=== PATIENT | female | born 1980 | race Caucasian/White ===

== ENCOUNTER 2017-09-05 18:49 | Emergency (ER) | payer OTHER ==
[2017-09-05 18:57] VITALS: BP 104/78; PULSE 79; TEMP 98.1; BMI 34.2
--- NOTE | 2017-09-05 21:28 | PDOC ---
History of Present Illness - General Chief Complaint: Pain, Acute Stated Complaint: KNEE PAIN Time Seen by Provider: 09/05/17 20:02 History Source: Patient Exam Limitations: No Limitations - History of Present Illness Initial Comments: 09/05/17 22:20 Patient is a 29-year-old female who presents to the emergency department today with right knee pain. Patient states that she has had the pain started a couple weeks ago but was not this intense. Patient states that her pain got worse over the past 2 days. She states that she cannot bend the knee and it hurts when she goes up and down the stairs. She has not taken any medication for the pain. She is use BenGay with little relief. Denies trauma, falling. Denies fevers, chills , numbness and tingling, weakness, rash. Past History - Travel Traveled outside of the country in the last 30 days: No Close contact w/someone who was outside of country & ill: No - Past Medical History Allergies/Adverse Reactions: Allergies Allergy/AdvReac Type Severity Reaction Status Date / Time No Known Allergies Allergy Verified 09/05/17 18:52 Home Medications: Ambulatory Orders NK [No Known Home Medication] 09/05/17 Anemia: Yes Asthma: No Cancer: No Cardiac Disorders: No CVA: No COPD: No CHF: No Dementia: No Diabetes: No GI Disorders: No Disorders: No HTN: No Hypercholesterolemia: No Liver Disease: No Seizures: No Thyroid Disease: No Other medical history: Pt denies - Surgical History Abdominal Surgery: No Appendectomy: No Cardiac Surgery: No Cholecystectomy: No Lung Surgery: No Neurologic Surgery: No Orthopedic Surgery: No - Suicide/Smoking/Psychosocial Hx Smoking Status: No Smoking History: Never smoked Have you smoked in the past 12 months: No Number of Cigarettes Smoked Daily: 0 Information on smoking cessation initiated: No Hx Alcohol Use: No Drug/Substance Use Hx: No Substance Use Type: None Hx Substance Use Treatment: No Review of Systems - Review of Systems Able to Perform ROS?: Yes Comments:: 09/05/17 22:22 CONSTITUTIONAL: Absent: fever, chills, diaphoresis, generalized weakness, malaise, loss of appetite HEENT: Absent: rhinorrhea, nasal congestion, throat pain, throat swelling, difficulty swallowing, mouth swelling, ear pain, eye pain, visual Changes CARDIOVASCULAR: Absent: chest pain, loss of consciousness, palpitations, irregular heart rate, peripheral edema RESPIRATORY: Absent: cough, shortness of breath, dyspnea with exertion, orthopnea, wheezing, stridor, hemoptysis GASTROINTESTINAL: Absent: abdominal pain, abdominal distension, nausea, vomiting, diarrhea, constipation, melena, hematochezia GENITOURINARY: Absent: dysuria, frequency, urgency, hesitancy, hematuria, flank pain, genital pain MUSCULOSKELETAL: Present: r knee pain/ swelling Absent: myalgia, arthralgia, joint swelling SKIN: Absent: rash, itching, pallor HEMATOLOGIC/IMMUNOLOGIC: Absent: easy bleeding, easy bruising, lymphadenopathy, frequent infections ENDOCRINE: Absent: unexplained weight gain, unexplained weight loss, heat intolerance, cold intolerance NEUROLOGIC: Absent: headache, focal weakness or paresthesias, dizziness, unsteady gait, seizure, mental status changes, bladder or bowel incontinence PSYCHIATRIC: Absent: anxiety, depression, suicidal or homicidal ideation, hallucinations. Is the patient limited [place] proficient: No *Physical Exam - Vital Signs Last Vital Signs Temp Pulse Resp BP Pulse Ox 98.1 F 79 18 104/78 100 09/05/17 18:52 09/05/17 18:52 09/05/17 18:52 09/05/17 18:52 09/05/17 18:52 - Physical Exam Comments: 09/05/17 22:24 GENERAL: Well developed, well nourished. Awake and alert. No acute distress. HEENT: Normocephalic, atraumatic. PERRLA, EOMI. No conjunctival pallor. Sclera are non- icteric. Moist mucous membranes. Oropharynx is clear. NECK: Supple. Full ROM. No JVD. Carotid pulses 2+ and symmetric, without bruits. No thyromegaly. No lymphadenopathy. CARDIOVASCULAR: Regular rate and rhythm. No murmurs, rubs, or gallops. Distal pulses are 2+ and symmetric. PULMONARY: No evidence of respiratory distress. Lungs clear to auscultation bilaterally. No wheezing, rales or rhonchi. ABDOMINAL: Soft. Non-tender. Non-distended. No rebound or guarding. No organomegaly. Normoactive bowel sounds. MUSCULOSKELETAL Normal range of motion at all joints. No bony deformities or tenderness. No CVA tenderness. EXTREMITIES: R leg with 2+ edema. TTP of the posterior knee and calf. (+) Homans sign. No cyanosis. No clubbing. No edema. No calf tenderness. SKIN: Warm and dry. Normal capillary refill. No rashes. No jaundice. NEUROLOGICAL: Alert, awake, appropriate. Cranial nerves 2-12 intact. No deficits to light touch and temperature in face, upper extremities and lower extremities. No motor deficits in the in face, upper extremities and lower extremities. Normoreflexic in the upper and lower extremities. Normal speech. Toes are down- going bilaterally. Gait is normal without ataxia. PSYCHIATRIC: Cooperative. Good eye contact. Appropriate mood and affect. ED Treatment Course - ADDITIONAL ORDERS Additional order review: Laboratory Results 09/05/17 20:07 Urine HCG, Qual Negative - RADIOLOGY Radiology Studies Ordered: Category Date Time Status KNEE 3 POS-RIGHT [RAD] Stat Radiology 09/05/17 20:03 Completed Medical Decision Making - Medical Decision Making 09/05/17 22:35 Patient is a 37-year-old female with no past medical history presents to emergency department today with right knee/leg pain. We'll rule out any mariia pathology with x-ray. However story and physical exam is slightly suspicious for possible DVT. Will rule out with Doppler. 1.venous duplex ultrasound rule out DVT 2.right knee x-ray, Upreg 3. Tylenol 4.reevaluate 09/05/17 23:31 X-ray is negative for fracture. slight fluid seen with effacement of the fat pad. Doppler is negative for clot. Will d/c home at this time. Most probably a knee strain with bursitis. Will give ortho follow up. *DC/Admit/Observation/Transfer Diagnosis at time of Disposition: Knee pain, right Qualifiers: Chronicity: acute Qualified Code(s): M25.561 - Pain in right knee; M25.561 - Pain in right knee - Discharge Dispostion Disposition: HOME Condition at time of disposition: Stable Admit: No - Referrals Referrals: Jesus Alberto Hurd MD [Staff Physician] - 2 Days - Patient Instructions Printed Discharge Instructions: DI for Knee Pain Additional Instructions: Your ultrasound was negative today for blood clots. Your x-ray showed a little fluid around the knee. This can be painful. You were given a knee immobilizer and crutches. Please use them until you can see orthopedics (bone doctor) You were given a referral. You may take Tylenol as needed for pain. You may take 500mg every 4 hours as needed not to exceed 4,000mg a day. Please ice the knee, 20 minutes 5 times a day. You may continue to use Bengay. Return to the ED if you have worsening pain, fevers, numbness and tingling, weakness, or any changes in your symptoms. Dennis ultrasonido fue negativo hoy para cogulos de josi. Chitra henrique X mostraron un poco de lquido alrededor de la rodilla. Draper puede ser doloroso Le dieron un inmovilizador de rodilla y muletas. selos hasta que pueda nahun ortopedia (m dico de huesos). Le dieron un referido. Puede sara Tylenol segn sea necesario para el dolor. Puede sara 500 mg cada 4 horas, segn sea necesario, sin exceder los 4.000 mg por da. Por favor, hiele la rodilla, 20 minutos 5 veces al da. Puede continuar usando Bengay. Regrese al departamento de emergencias si tiene un empeoramiento del dolor, fiebre, entumecimiento y hormigueo, debilidad o cualquier cambio en chitra s ntomas. Print Language: MONTSERRATIAN
[2017-09-05] MEDS ORDERED: ACETAMINOPHEN 325 MG TABLET (FP) PO ONE (22:22)
[2017-09-05] MEDS ORDERED: ACETAMINOPHEN 325 MG TABLET (FP) ONE (22:27)
== END 2017-09-05 23:50 | disposition home or self-care (01) ==
LOC: JER 18:49 → JERFT 18:49 → JER 23:50
DX: M25.561 Pain in right knee (principal)
CPT/HCPCS: 73562-TC-RT; 84703; 93971-TC; 99283-25

== ENCOUNTER 2018-05-01 09:52 | Emergency (ER) | payer SELFPAY ==
[2018-05-01 10:08] VITALS: BP 103/69; PULSE 61; TEMP 98.1; BMI 39.6
[2018-05-01] MEDS ORDERED: METOCLOPRAMIDE HCL INJECTION 10 MG/2 ML VIAL IVPB ONE (10:28)
[2018-05-01] MEDS ORDERED: SODIUM CHLORIDE 1,000 ML IV STA (10:28)
[2018-05-01] MEDS ORDERED: METOCLOPRAMIDE HCL INJECTION 10 MG/2 ML VIAL ONE (10:43)
--- NOTE | 2018-05-01 11:38 | PDOC ---
History of Present Illness - General Chief Complaint: Headache Stated Complaint: HEADACHE Time Seen by Provider: 05/01/18 10:16 History Source: Patient, Production Control Manager Used ([id number]) Exam Limitations: Language Barrier - History of Present Illness Initial Comments: 05/01/18 11:35 38 yr female with c/o headache dizzyness vomiting started today. Pt denies no fever no head injury. Pt had same symptoms 2-3 yrs ago went to ER and was given meds that made her feel better. Severity: Yes: moderate Episode Description: frontal to back of head with photophobia. Associated Symptoms: denies: fever/chills Past History - Past Medical History Allergies/Adverse Reactions: Allergies Allergy/AdvReac Type Severity Reaction Status Date / Time No Known Allergies Allergy Verified 05/01/18 10:04 Home Medications: Ambulatory Orders Meclizine HCl [Antivert -] 25 mg PO TID PRN #21 tablet 05/01/18 Naproxen [Naprosyn -] 500 mg PO BID PRN #14 tablet 05/01/18 Anemia: Yes Asthma: No Cancer: No Cardiac Disorders: No CVA: No COPD: No CHF: No Dementia: No Diabetes: No GI Disorders: No Disorders: No HTN: No Hypercholesterolemia: No Liver Disease: No Seizures: No Thyroid Disease: No - Surgical History Abdominal Surgery: No Appendectomy: No Cardiac Surgery: No Cholecystectomy: No Lung Surgery: No Neurologic Surgery: No Orthopedic Surgery: No - Suicide/Smoking/Psychosocial Hx Smoking Status: No Smoking History: Never smoked Have you smoked in the past 12 months: No Number of Cigarettes Smoked Daily: 0 Hx Alcohol Use: No Drug/Substance Use Hx: No Substance Use Type: None Hx Substance Use Treatment: No Neuro Specific PMHX - Complaint Specific PMHX Glaucoma: No Herniated Disk: No Laminectomy: No Migraine: No Multiple Sclerosis: No Neuropathy: No TIA: No Review of Systems - Review of Systems Able to Perform ROS?: Yes Is the patient limited [place] proficient: Yes Neurological: Yes: Symptoms reported *Physical Exam - Vital Signs Last Vital Signs Temp Pulse Resp BP Pulse Ox 98.1 F 61 18 103/69 100 05/01/18 10:04 05/01/18 10:04 05/01/18 10:04 05/01/18 10:04 05/01/18 10:04 - Physical Exam General Appearance: Yes: Nourished, Appropriately Dressed HEENT: positive: EOMI, TAMMY, TMs Normal, Pharynx Normal Neck: positive: Supple. negative: Tender Respiratory/Chest: positive: Lungs Clear, Normal Breath Sounds Cardiovascular: positive: Regular Rhythm, Regular Rate Extremity: positive: Normal Capillary Refill, Normal Inspection, Normal Range of Motion Integumentary: positive: Normal Color, Dry, Warm Neurologic: positive: Fully Oriented, Alert, Normal Mood/Affect, Normal Response , Motor Strength 5/5, Finger to Nose (intact). negative: Numbness, Sensory Deficit, Confused ED Treatment Course - Medications Given in the ED: ED Medications Discontinued Medications Generic Name Dose Route Start Last Admin Trade Name Freq PRN Reason Stop Dose Admin Diphenhydramine HCl 25 mg 05/01/18 10:28 05/01/18 10:48 Benadryl Injection - IVPB 05/01/18 10:29 25 mg ONCE ONE Administration Sodium Chloride 1,000 mls @ 1,000 mls/hr 05/01/18 10:28 05/01/18 10:41 Normal Saline - IV 05/01/18 11:27 1,000 mls/hr ASDIR STA Administration Metoclopramide HCl 10 mg 05/01/18 10:28 05/01/18 11:16 Reglan Injection - IVPB 05/01/18 10:29 10 mg ONCE ONE Administration Medical Decision Making - Medical Decision Making 05/01/18 11:38 cc: frontal headache dizzy, nausea vomiting no fever 05/01/18 12:51 meds and fluids given, pt feels much better no nausea no dizzyness will dc home with meclizine and strict follow up *DC/Admit/Observation/Transfer Diagnosis at time of Disposition: Vertigo - Discharge Dispostion Disposition: HOME Condition at time of disposition: Good - Prescriptions Prescriptions: Meclizine HCl [Antivert -] 25 mg PO TID PRN #21 tablet PRN Reason: dizzyness Naproxen [Naprosyn -] 500 mg PO BID PRN #14 tablet PRN Reason: Headache - Referrals Referrals: Doc Locke MD [Staff Physician] - Valentín Brunner MD [Staff Physician] - - Patient Instructions Additional Instructions: follow with or with take the medications as prescribed drink at least 2 liters of water a day avoid heat, this can make symptoms worse no stress, no strenuous activity return to ER if any worsening symptoms seguir con o con sara los medicamentos segn lo prescrito beber al menos 2 litros de agua al da evitar el calor, esto puede empeorar los sntomas sin estrs, sin actividad extenuante regresar a la martha de emergencia si algn sntoma empeora - Post Discharge Activity
[2018-05-01] MEDS ORDERED: KETOROLAC TROMETHAMINE 15 MG/ML VIAL IVPUSH ONE (12:27)
[2018-05-01] MEDS ORDERED: KETOROLAC TROMETHAMINE 15 MG/ML VIAL ONE (12:28)
== END 2018-05-01 13:03 | disposition home or self-care (01) ==
LOC: JERFT 09:52
PROC: 3E0337Z Introduction of Electrolytic and Water Balance Substance into Peripheral Vein, Percutaneous Approach (ICD-10-PCS; principal; 2018-05-01)
PROC: 3E0333Z Introduction of Anti-inflammatory into Peripheral Vein, Percutaneous Approach (ICD-10-PCS; 2018-05-01)
PROC: 3E033GC Introduction of Other Therapeutic Substance into Peripheral Vein, Percutaneous Approach (ICD-10-PCS; 2018-05-01)
PROC: 3E033GC Introduction of Other Therapeutic Substance into Peripheral Vein, Percutaneous Approach (ICD-10-PCS; 2018-05-01)
DX: R42 Dizziness and giddiness (principal)
CPT/HCPCS: 84703; 99281-25; J7030

== ENCOUNTER 2019-07-05 07:40 | Emergency (ER) | payer SELFPAY ==
[2019-07-05 07:46] VITALS: BP 121/75; PULSE 65; TEMP 98.3; BMI 37.8
--- NOTE | 2019-07-05 08:27 | PDOC ---
History of Present Illness - General History Source: Patient - History of Present Illness Timing/Duration: reports: constant Quality: reports: other (pressure) <Sis Elizabeth - Last Filed: 07/05/19 09:34> <Merlin Ahn - Last Filed: 07/05/19 16:40> - General Chief Complaint: Hematuria Stated Complaint: BLOOD IN URINE/ABD PAIN Time Seen by Provider: 07/05/19 07:54 Past History - Past Medical History Anemia: Yes Asthma: No Cancer: No Cardiac Disorders: No CVA: No COPD: No CHF: No Dementia: No Diabetes: No GI Disorders: No Disorders: No HTN: No Hypercholesterolemia: No Liver Disease: No Seizures: No Thyroid Disease: No - Surgical History Abdominal Surgery: No (tubal ligation) Appendectomy: No Cardiac Surgery: No Cholecystectomy: No Lung Surgery: No Neurologic Surgery: No Orthopedic Surgery: No - Suicide/Smoking/Psychosocial Hx Smoking Status: No Smoking History: Never smoked Have you smoked in the past 12 months: No Number of Cigarettes Smoked Daily: 0 Information on smoking cessation initiated: No Hx Alcohol Use: No Drug/Substance Use Hx: No Substance Use Type: None Hx Substance Use Treatment: No <Sis Elizabeth - Last Filed: 07/05/19 09:34> <Merlin Ahn - Last Filed: 07/05/19 16:40> - Past Medical History Allergies/Adverse Reactions: Allergies Allergy/AdvReac Type Severity Reaction Status Date / Time No Known Allergies Allergy Verified 07/05/19 07:44 Home Medications: Ambulatory Orders Meclizine HCl [Antivert -] 25 mg PO TID PRN #21 tablet 05/01/18 Naproxen [Naprosyn -] 500 mg PO BID PRN #14 tablet 05/01/18 Nitrofurantoin Monohyd/M-Cryst [Macrobid -] 100 mg PO BID #14 capsule 07/05/19 Review of Systems - Review of Systems Constitutional: No: Chills, Fever ABD/GI: No: Nausea, Vomiting : Yes: Dysuria, Hematuria. No: Frequency, Flank Pain Musculoskeletal: No: Back Pain <Sis Elizabeth - Last Filed: 07/05/19 09:34> *Physical Exam - Vital Signs Last Vital Signs Temp Pulse Resp BP Pulse Ox 98.3 F 65 18 121/75 99 07/05/19 07:42 07/05/19 07:42 07/05/19 07:42 07/05/19 07:42 07/05/19 07:42 - Physical Exam General Appearance: Yes: Appropriately Dressed. No: Apparent Distress HEENT: positive: Normal Voice Neck: positive: Supple Respiratory/Chest: negative: Respiratory Distress Gastrointestinal/Abdominal: positive: Soft. negative: Tender Musculoskeletal: negative: CVA Tenderness Integumentary: positive: Dry, Warm Neurologic: positive: Fully Oriented, Alert, Normal Mood/Affect <Sis Elizabeth - Last Filed: 07/05/19 09:34> - Vital Signs Last Vital Signs Temp Pulse Resp BP Pulse Ox 98.3 F 65 18 121/75 99 07/05/19 07:42 07/05/19 07:42 07/05/19 07:42 07/05/19 07:42 07/05/19 07:42 <Merlin Ahn - Last Filed: 07/05/19 16:40> ED Treatment Course - ADDITIONAL ORDERS Additional order review: Laboratory Results 07/05/19 07/05/19 08:03 08:03 Urine Color Red Urine Appearance Turbid Urine pH 5.5 D Ur Specific [place] 1.009 L Urine Protein 2+ H Urine Glucose (UA) Negative Urine Ketones Negative Urine Blood 3+ H Urine Nitrite Positive H Urine Bilirubin 1+ H Urine Urobilinogen 0.2 Ur Leukocyte Esterase 3+ H Urine WBC (Auto) 178 Urine RBC (Auto) 7355.5 Urine Casts (Auto) 86 U Pathogenic Cast Auto None seen U Epithel Cells (Auto) 0.9 Urine Bacteria (Auto) 5.9 Urine Yeast (Auto) None seen Urine HCG, Qual Negative <Merlin Ahn - Last Filed: 07/05/19 16:40> Medical Decision Making - Medical Decision Making 07/05/19 08:23 39 yo F, s/p tubal ligation remotely, here w/ gross hematuria w/ dysuria x 2 dats/ No flank pain, n/v/f/c. No h/o renal stone. Pt states she gets monthly menses and that LMP was > 2 weeks ago but had some mild bleeding on and off several days ago which is unusual for pt. No vag bleed currently see exam UTI No e/o pyelo S/p tubal ligation remotely -ua/cx pending 07/05/19 09:02 UA w/ nit and LE. Will dc a/ abx (no prior sen on chart review). Reasons to return d/w pt <Sis Elizaebth - Last Filed: 07/05/19 09:34> - Medical Decision Making 07/05/19 16:39 I reviewed the case of the mid-level practitioner and was available for consultation while in the emergency department <Merlin Ahn - Last Filed: 07/05/19 16:40> *DC/Admit/Observation/Transfer <Sis Elizabeth - Last Filed: 07/05/19 09:34> <Merlin Ahn - Last Filed: 07/05/19 16:40> Diagnosis at time of Disposition: UTI (urinary tract infection) Qualifiers: Urinary tract infection type: acute cystitis Hematuria presence: with hematuria Qualified Code(s): N30.01 - Acute cystitis with hematuria - Discharge Dispostion Disposition: HOME Condition at time of disposition: Good - Prescriptions Prescriptions: Nitrofurantoin Monohyd/M-Cryst [Macrobid -] 100 mg PO BID #14 capsule - Patient Instructions Printed Discharge Instructions: Urinary Tract Infection Additional Instructions: Dennis orina muestra que tiene caleb infeccin. Por favor tome antibiticos segn las indicaciones. Regrese si los sntomas empeoran Print Language: CZECH - Post Discharge Activity Forms/Work/School Notes: Back to Work
[2019-07-05 08:41] LABS: EPI CELLS 0.9 /HPF (0-5/HPF); HYALINE CASTS 86 /lpf (0-8); PH,URINE 5.5 (5.0-8.0); URINE APPEARANCE TURBID; URINE BACTERIA 5.9 /hpf (NEGATIVE); URINE BILIRUBIN 1+ (NEGATIVE); URINE COLOR RED; URINE GLUCOSE (UA) NEGATIVE (NEGATIVE); URINE KETONE NEGATIVE (NEGATIVE); URINE LEUK ESTERASE 3+ (NEGATIVE); URINE NITRITE POSITIVE (NEGATIVE); URINE PROTEIN 2+ (NEGATIVE); URINE UROBILINOGEN 0.2 mg/dL (0.2-1.0); URINE WBC 178 /hpf (0-5)
[2019-07-05 09:41] LABS: URINE RBC 7355.5 /hpf (0-4)
[2019-07-05 09:42] LABS: YEAST NONE SEEN (NEGATIVE)
== END 2019-07-05 09:14 | disposition home or self-care (01) ==
LOC: JER 07:40
DX: N30.01 Acute cystitis with hematuria (principal)
CPT/HCPCS: 81003; 84703; 87086; 87186; 99283-25

== ENCOUNTER 2024-07-14 10:22 | Emergency (ER) | payer OTHER ==
[2024-07-14 10:40] VITALS: BP 113/81; PULSE 73; RESP 16; TEMP 98.7; BMI 43.0
[2024-07-14 11:19] LABS: EPI CELLS 33 /uL (0-25.1); HYALINE CASTS 0 /uL (0-3.1); PH,URINE 5.5 (5.0-8.0); URINE APPEARANCE CLOUDY; URINE BACTERIA 1087 /uL (0-1359); URINE BILIRUBIN NEGATIVE (NEGATIVE); URINE COLOR YELLOW; URINE GLUCOSE (UA) NEGATIVE (NEGATIVE); URINE KETONE NEGATIVE (NEGATIVE); URINE LEUK ESTERASE 2+ (NEGATIVE); URINE NITRITE NEGATIVE (NEGATIVE); URINE PROTEIN 1+ (NEGATIVE); URINE UROBILINOGEN 0.2 mg/dL (0.2-1.0); URINE WBC 1276 /uL (0-25.8)
[2024-07-14 12:17] LABS: URINE RBC 78.9 /uL (0-23.9)
== END 2024-07-14 11:40 | disposition home or self-care (01) ==
LOC: JER 10:22
DX: N30.01 Acute cystitis with hematuria (principal); R30.0 Dysuria
CPT/HCPCS: 81003; 87086; 87186; 99283-25

== ENCOUNTER 2024-08-03 09:48 | Emergency (ER) | payer OTHER ==
[2024-08-03 10:02] VITALS: BMI 41.0
[2024-08-03] MEDS ORDERED: ACETAMINOPHEN INJECTION 100 ML ONE (11:30)
[2024-08-03] MEDS: ACETAMINOPHEN 1000 MG/100 ML BAG IVPB ONE (11:44)
[2024-08-03 11:52] LABS: BASO % 0.2 % (0-2.0); EOS % 1.3 % (0-4.5); HEMATOCRIT 39.2 % (32.4-45.2); HEMOGLOBIN 13.1 GM/dL (10.7-15.3); LYMPH % 24.2 % (8-40); MCH 30.2 pg (25.7-33.7); MCHC 33.4 g/dl (32.0-36.0); MEAN CELL VOLUME 90.4 fl (80-96); MEAN PLT VOLUME 9.5 fl (7.5-11.1); NEUT % 67.3 % (42.8-82.8); PLATELET COUNT 235 10^3/uL (134-434); RBC 4.34 M/mm3 (3.60-5.2); RDW 13.8 % (11.6-15.6); WHITE BLOOD COUNT 8.4 K/mm3 (4.0-10.0)
[2024-08-03 12:07] LABS: CALCIUM 9.4 mg/dL (8.5-10.1)
[2024-08-03 12:09] LABS: ALBUMIN 3.8 g/dl (3.4-5.0); BLOOD UREA NITROGEN 8.9 mg/dL (7-18)
[2024-08-03 12:11] LABS: CREATININE 0.5 mg/dL (0.55-1.3)
[2024-08-03 12:12] LABS: BILIRUBIN,TOTAL 0.4 mg/dL (0.2-1)
[2024-08-03 12:13] LABS: TOT PROT 8.1 g/dl (6.4-8.2)
[2024-08-03 13:02] LABS: HIV INTERPRETATION NEGATIVE (NEGATIVE)
[2024-08-03 13:59] VITALS: BP 118/71; PULSE 69; RESP 20; TEMP 98.1
== END 2024-08-03 14:40 | disposition home or self-care (01) ==
LOC: JER 09:48
PROC: 3E033NZ Introduction of Analgesics, Hypnotics, Sedatives into Peripheral Vein, Percutaneous Approach (ICD-10-PCS; principal; 2024-08-03)
DX: R07.89 Other chest pain (principal)
CPT/HCPCS: 36415; 71046-TC-FY; 80053; 84484; 85025; 86803; 87389; 93005; 93010; 96375; 99285-25; J0131